=== PATIENT | female | born 1945 | race Caucasian/White ===

== ENCOUNTER 2016-08-08 19:51 | Emergency (ER) | payer MEDICARE, BC ==
[2016-08-08] MEDS ORDERED: Ketorolac INJ* 60 MG/2 ML VIAL IM ONE (21:06)
[2016-08-08] MEDS ORDERED: Ketorolac INJ* 60 MG/2 ML VIAL ONE (21:07)
--- NOTE | 2016-08-08 21:46 | RAD ---
HISTORY: Right rib and sternal pain after fall COMPARISONS: None VIEWS: 7, Frontal view of the chest with frontal and oblique views of the right hemithorax. FINDINGS: There are probable nondisplaced fractures of the right eighth and ninth ribs. There is no appreciable pneumothorax. IMPRESSION: PROBABLE NONDISPLACED FRACTURES OF THE RIGHT EIGHTH AND NINTH RIBS. NO APPRECIABLE PNEUMOTHORAX.
[2016-08-08] MEDS ORDERED: traMADol TAB* 50 MG PO ONE (22:01)
[2016-08-08 22:54] VITALS: BP 135/70
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
== END 2016-08-08 22:51 | disposition home or self-care (01) ==
LOC: ED 19:51
DX: S22.41XA Multiple fractures of ribs, right side, initial encounter for closed fracture (principal); X58.XXXA Exposure to other specified factors, initial encounter; Y93.9 Activity, unspecified; Y92.9 Unspecified place or not applicable
CPT/HCPCS: 99282; A9270-GY; J1885

== ENCOUNTER 2016-09-09 22:15 | Emergency (ER) | payer MEDICARE, BC ==
[2016-09-09] MEDS ORDERED: NS 0.9% 1000 ML* 1,000 ML IV ONE (22:46)
[2016-09-09 23:23] LABS: Hematocrit 36 % (35-47); Hemoglobin 11.3 g/dl (12.0-16.0); Mean Corpuscular HGB Conc 32 g/dl (31-36); Mean Corpuscular Hemoglobin 28 pg (27-31); Mean Corpuscular Volume 88 fL (80-97); Mean Platelet Volume 8 um3 (7.4-10.4); Red Blood Count 4.03 10^6/ul (4.0-5.4); Red Cell Distribution Width 14 % (10.5-15); White Blood Count 14.1 10^3/ul (3.5-10.8)
[2016-09-09 23:26] LABS: Add Diff/Slide Review? Slide Review Added; Comments Flag Yes
[2016-09-09 23:44] LABS: ALT 24 U/L (7-52); Albumin 3.3 g/dL (3.2-5.2); Alkaline Phosphatase 49 U/L (34-104); Blood Urea Nitrogen 16 mg/dL (6-24); CO2 Carbon Dioxide 19 mmol/L (22-32); Chloride 104 mmol/L (101-111); EGFR Non-African American 91.7 (>60); Globulin 2.6 g/dL (2-4); Glucose 109 mg/dL (70-100); Lipase 12 U/L (11.0-82.0); Sodium 135 mmol/L (133-145); Total Protein 5.9 g/dL (6.4-8.9)
[2016-09-09 23:45] LABS: TSH (Thyroid Stimulating Horm) 2.32 mcIU/mL (0.34-5.60)
[2016-09-09 23:58] LABS: Calcium 5.9 mg/dL (8.6-10.3)
[2016-09-10] MEDS ORDERED: Acetaminophen TAB* 325 MG PO ONE (00:13)
[2016-09-10] MEDS ORDERED: Acetaminophen TAB* 325 MG ONE (00:14)
[2016-09-10 00:29] LABS: Magnesium 1.5 mg/dL (1.9-2.7)
[2016-09-10] MEDS ORDERED: Magnesium Sulfate 2 GM IV* 2 GM/50 ML BAG IVPB ONE (00:57)
--- NOTE | 2016-09-10 02:45 | ED ---
Abrahan Shipley Claudia, scribed for David Benz MD on 09/09/16 at 2248 . Complex/Multi-Sys Presentation - HPI Summary HPI Summary: 71 year old female presents to the ED with NVD. Pt also notes some abd pain, specifically describing it as a band that across her her abdomen. Pt notes that the abd pain is only really present post-emesis and then subsides. Pt notes sudden onset of Sx this am and they have persisted all day. She states that she was able to drink some sips of water and catarino-dinora but nothing else. Pt denies any bloody stool but does admit to some chills today with possible fever. Pt notes that this evening she was going to the restroom when her hands tightened up and her face felt numb but she was able to speak, but unable to move her arms. This concerned the pt and they decided to come to the ED. Pt does mention that her abdomen feels bloated. PSHx: appendectomy, cholestectomy, hysterectomy - History Of Current Complaint Chief Complaint: EDAbdPain Time Seen by Provider: 09/09/16 22:34 Hx Obtained From: Patient Onset/Duration: Sudden Onset - this am, Still Present Timing: Intermittent, Lasting: Associated Signs And Symptoms: Positive: Weakness, Nausea, Vomiting, Diarrhea, Abdominal Pain. Negative: Fever - Allergies/Home Medications Allergies/Adverse Reactions: Allergies Allergy/AdvReac Type Severity Reaction Status Date / Time Erythromycin Allergy Palpitation Verified 09/09/16 22:24 s pain killers Allergy Palpitation Uncoded 08/08/16 19:58 s PMH/Surg Hx/FS Hx/Imm Hx Previously Healthy: Yes Endocrine/Hematology History: Denies: Hx Diabetes Cardiovascular History: Denies: Hx Myocardial Infarction Infectious Disease History: No Infectious Disease History: Denies: Traveled Outside the [place] in Last 30 Days - Family History Family History: AFIB - Social History Occupation: Retired Lives: With Family Alcohol Use: Rare Hx Substance Use: No Substance Use Type: Reports: None Hx Tobacco Use: No Smoking Status (MU): Never Smoked Tobacco Review of Systems Positive: Chills. Negative: Fever Eyes: Negative ENT: Negative Cardiovascular: Negative Respiratory: Negative Positive: Abdominal Pain - discomfort , Vomiting, Diarrhea, Nausea Genitourinary: Negative Musculoskeletal: Negative Skin: Negative Neurological: Negative Psychological: Normal All Other Systems Reviewed And Are Negative: Yes Physical Exam Triage Information Reviewed: Yes Vital Signs On Initial Exam: Initial Vitals Temp Pulse Resp BP Pulse Ox 99.5 F 75 17 154/96 100 09/09/16 22:20 09/09/16 22:20 09/09/16 22:20 09/09/16 22:20 09/09/16 22:20 Vital Signs Reviewed: Yes Appearance: Positive: No Pain Distress - no acute distress Skin: Positive: Warm, Skin Color Reflects Adequate Perfusion, Dry Head/Face: Positive: Normal Head/Face Inspection Eyes: Positive: EOMI, BONNY ENT: Positive: Other - oral mucosa dry Neck: Positive: Supple, Nontender Respiratory/Lung Sounds: Positive: Clear to Auscultation, Breath Sounds Present Cardiovascular: Positive: RRR Abdomen Description: Positive: Soft. Negative: Nontender - diffuse tenderness Bowel Sounds: Positive: Hypoactive Musculoskeletal: Positive: Normal, Strength/ROM Intact Neurological: Positive: Normal, Sensory/Motor Intact, Alert, Oriented to Person Place, Time Psychiatric: Positive: Affect/Mood Appropriate - [place] Coma Scale Coma Scale Total: 15 Diagnostics - Vital Signs Vital Signs Temp Pulse Resp BP Pulse Ox 09/09/16 22:24 99.5 F 71 16 154/96 99 09/09/16 22:20 99.5 F 75 17 154/96 100 - Laboratory Lab Results: Lab Results 09/09/16 09/09/16 09/09/16 Range/Units 22:56 22:56 22:56 WBC 14.1 H (3.5-10.8) 10^3/ul RBC 4.03 (4.0-5.4) 10^6/ul Hgb 11.3 L (12.0-16.0) g/dl Hct 36 (35-47) % MCV 88 (80-97) fL MCH 28 (27-31) pg MCHC 32 (31-36) g/dl RDW 14 (10.5-15) % Plt Count 252 (150-450) 10^3/ul MPV 8 (7.4-10.4) um3 Neut % (Auto) 85.4 H (38-83) % Lymph % (Auto) 4.7 L (25-47) % [place] % (Auto) 8.7 (1-9) % Eos % (Auto) 0.3 (0-6) % Baso % (Auto) 0.9 (0-2) % Absolute Neuts (auto) 12.0 H (1.5-7.7) 10^3/ul Absolute Lymphs (auto) 0.7 L (1.0-4.8) 10^3/ul Absolute Monos (auto) 1.2 H (0-0.8) 10^3/ul Absolute Eos (auto) 0 (0-0.6) 10^3/ul Absolute Basos (auto) 0.1 (0-0.2) 10^3/ul Absolute Nucleated RBC 0.01 10^3/ul Nucleated RBC % 0 INR (Anticoag Therapy) 0.95 (0.89-1.11) APTT 27.0 (26.0-36.3) seconds Sodium 135 (133-145) mmol/L Potassium TNP Chloride 104 (101-111) mmol/L Carbon Dioxide 19 L (22-32) mmol/L Anion Gap TNP BUN 16 (6-24) mg/dL Creatinine 0.64 (0.51-0.95) mg/dL Est GFR ( Amer) 118.0 (>60) Est GFR (Non-Af Amer) 91.7 (>60) BUN/Creatinine Ratio 25.0 H (8-20) Glucose 109 H (70-100) mg/dL Lactic Acid (0.5-2.0) mmol/L Calcium 5.9 L* (8.6-10.3) mg/dL Magnesium TNP Total Bilirubin 1.00 (0.2-1.0) mg/dL AST TNP ALT 24 (7-52) U/L Alkaline Phosphatase 49 (34-104) U/L C-Reactive Protein 64.00 H (< 5.00) mg/L Total Protein 5.9 L (6.4-8.9) g/dL Albumin 3.3 (3.2-5.2) g/dL Globulin 2.6 (2-4) g/dL Albumin/Globulin Ratio 1.3 (1-3) Lipase 12 (11.0-82.0) U/L TSH 2.32 (0.34-5.60) mcIU/mL 09/09/16 09/10/16 Range/Units 22:56 00:05 WBC (3.5-10.8) 10^3/ul RBC (4.0-5.4) 10^6/ul Hgb (12.0-16.0) g/dl Hct (35-47) % MCV (80-97) fL MCH (27-31) pg MCHC (31-36) g/dl RDW (10.5-15) % Plt Count (150-450) 10^3/ul MPV (7.4-10.4) um3 Neut % (Auto) (38-83) % Lymph % (Auto) (25-47) % [place] % (Auto) (1-9) % Eos % (Auto) (0-6) % Baso % (Auto) (0-2) % Absolute Neuts (auto) (1.5-7.7) 10^3/ul Absolute Lymphs (auto) (1.0-4.8) 10^3/ul Absolute Monos (auto) (0-0.8) 10^3/ul Absolute Eos (auto) (0-0.6) 10^3/ul Absolute Basos (auto) (0-0.2) 10^3/ul Absolute Nucleated RBC 10^3/ul Nucleated RBC % INR (Anticoag Therapy) (0.89-1.11) APTT (26.0-36.3) seconds Sodium (133-145) mmol/L Potassium 3.3 L Chloride (101-111) mmol/L Carbon Dioxide (22-32) mmol/L Anion Gap BUN (6-24) mg/dL Creatinine (0.51-0.95) mg/dL Est GFR ( Amer) (>60) Est GFR (Non-Af Amer) (>60) BUN/Creatinine Ratio (8-20) Glucose (70-100) mg/dL Lactic Acid 1.3 (0.5-2.0) mmol/L Calcium (8.6-10.3) mg/dL Magnesium 1.5 L Total Bilirubin (0.2-1.0) mg/dL AST 29 ALT (7-52) U/L Alkaline Phosphatase (34-104) U/L C-Reactive Protein (< 5.00) mg/L Total Protein (6.4-8.9) g/dL Albumin (3.2-5.2) g/dL Globulin (2-4) g/dL Albumin/Globulin Ratio (1-3) Lipase (11.0-82.0) U/L TSH (0.34-5.60) mcIU/mL Result Diagrams: 09/09/16 22:56 09/10/16 00:05 Lab Statement: Any lab studies that have been ordered have been reviewed, and results considered in the medical decision making process. Re-Evaluation - Re-Evaluation 1 Re-Evaluation Time: 11:30 Comment: Lab results are discussed with pt. Complex Multi-Symp Course/Dx Course Of Treatment: NO CRITICAL CARE TIME Assessment/Plan: IMPROVED IN ED. TOLERATED PO IN ED. DISCHARGE HOME STABLE. - Diagnoses Provider Diagnoses: Dehydration, Vomiting and diarrhea - Physician Notifications Discussed Care Of Patient With: Dr. Stallworth is made aware of the pt. Time Discussed With Above Provider: 00:52 Discharge - Discharge Plan Condition: Stable Disposition: HOME Patient Education Materials: Dehydration (ED), Acute Nausea and Vomiting (ED), Acute Diarrhea (ED) Referrals: Yadira Pruitt MD [Primary Care Provider] - Additional Instructions: FOLLOW UP WITH YOUR DOCTOR. RETURN TO THE EMERGENCY DEPARTMENT FOR ANY WORSENING OF YOUR CONDITION; PAIN, FEVER, DEHYDRATION, YOU FEEL ILL OR QUESTIONS OR CONCERNS. The documentation as recorded by the Abrahan avelar Claudia accurately reflects the service I personally performed and the decisions made by me, David Benz MD.
[2016-09-10] MEDS ORDERED: Ondansetron ODT TAB* 4 MG PO ONE (02:46)
[2016-09-10 04:09] VITALS: BP 112/65
== END 2016-09-10 03:30 | disposition home or self-care (01) ==
LOC: ED 22:15
DX: R11.2 Nausea with vomiting, unspecified (principal); R53.1 Weakness; R19.7 Diarrhea, unspecified; R10.9 Unspecified abdominal pain; E86.0 Dehydration
CPT/HCPCS: 36415; 80053; 83605; 83690; 83735; 84443; 85025; 85610; 85730; 86140; 99283; A9270-GY; J0610

== ENCOUNTER 2019-03-31 08:14 | Day surgery (SDC) | payer MEDICARE, BC ==
[~2019-03-31 08:14] MED LIST: Acetaminophen TAB* 325 MG PO PRN; Buffered Lidocaine 1% SYRIN* 1 ML/SYRINGE INTRADERM ONE; Cyclopentolate 1% OPTH.SOL* 2 ML BTL ONE; Ketorolac 0.5% OPHTH (NF) 0.5 % 5 ML BTL ONE; Lidocaine 1% MPF ** 5 ML VIAL ONE; Lidocaine 2% w/ EPI 1:200,000* 20 ML SDV VIAL ONE; Neomycin/Polymy/Dex OPTH.SUSP* MAXITROL 0.1% 5 ML ONE; Phenylephrine OPHTH SOL 2.5%* 2 ML ONE; Povidone Iodine 5% OPTH* 30 ML BTL ONE; Proparacaine 0.5% OPHTH.SOL* 15 ML BTL ONE; acetaZOLAMIDE TAB* 250 MG ONE
[2019-03-31] MEDS ORDERED: Midazolam* 1 MG/ML 2 ML VIAL (2 MG) ONE (10:03)
[2019-03-31] MEDS ORDERED: Acetaminophen TAB* 325 MG ONE (10:45)
[2019-03-31 10:57] VITALS: BP 106/66
--- NOTE | 2019-03-31 13:36 | OP ---
OPERATIVE NOTE: DATE OF OPERATION: 03/31/19 DATE OF : 47 SURGEON: Garth Boyer M.D. PREOPERATIVE DIAGNOSIS: Cataract, right eye. POSTOPERATIVE DIAGNOSIS: Cataract, right eye. OPERATIVE PROCEDURE: Extracapsular cataract extraction with intraocular lens implant right eye. PROCEDURE: The patient was brought to the operating room after being given 1/2% Alcaine with epineph rine drops in the preoperative area. The eye was prepped and draped in the usual sterile fashion. S terile drape and eyelid speculum were placed. Again, topical 1/2% Alcaine with epinephrine was given . A paracentesis incision was made at the 9 o'clock position with the No. 75 blade. Clear cornea in cision 2.2 x 2.2-mm was created at the 12 o'clock position starting at the anterior limbus using the 2.2-mm keratome. The anterior chamber was irrigated with 0.4 mL of 1% non-preservative intracameral lidocaine and filled with DisCoVisc. A capsulorrhexis was completed using the cystotome and the Utra ta forceps. Hydrodissection was performed with balanced salt solution. The lens nucleus was removed with the Phacoemulsification handpiece without incident. Cortex was removed with the irrigation-aspi ration handpiece. The capsular bag was re-inflated using DisCoVisc and an [id number] 16.0 Implant was in serted with the shooter oriented to the 177 degree meridian. All measurements were performed with OR A. The irrigation-aspiration handpiece was used to remove all residual DisCoVisc. The eye was refil led with balanced salt solution and the wound checked and found to be watertight. Topical Maxitrol d rops were given. [id number]/[facility] #: [id number]
== END 2019-03-31 10:50 | disposition home or self-care (01) ==
LOC: OREAST 08:14
PROVIDERS: ATTEND Specialist
DX: H25.811 Combined forms of age-related cataract, right eye (principal); H33.312 Horseshoe tear of retina without detachment, left eye; M19.90 Unspecified osteoarthritis, unspecified site; E03.9 Hypothyroidism, unspecified; M85.80 Other specified disorders of bone density and structure, unspecified site
CPT/HCPCS: A9270-GY; J2250; V2787